=== PATIENT | female | born 1995 | race Caucasian/White ===

== ENCOUNTER → 2020-09-02 09:44 | Outpatient (CLI) | payer OTHER, SELFPAY ==
--- NOTE | 2020-09-02 | DI.US.S_ITS ---
PROCEDURE: US PELVIC COMPLETE INDICATIONS: SECONDARY OLIGOMENORRHEA; POSSIBLE PCOS TECHNIQUE: Real-time scanning was performed of the pelvic organs, with image documentation. Additional endovaginal scanning was necessary due to incomplete visualization of the adnexal and endometrial structures by transabdominal scanning. COMPARISON: None. FINDINGS: Uterus: Uterus is normal in size at 5.9 x 3.8 x 4.5 cm. The endometrium measures 5 mm in combined thickness. Ovaries: The right ovary measures 4.3 x 2.4 x 2.9 cm. The left ovary measures 3.5 x 1.6 x 4.2 cm. The ovaries have a normal sonographic appearance. Numerous (more than 12) follicles can be seen involving each ovary. No adnexal masses are seen. Other: No pathologic free abdominal or pelvic fluid. IMPRESSION: More than 12 follicles can be seen involving each ovary, which is consistent with polycystic ovarian syndrome. Dictated by: Chaka Contreras M.D. on 09/02/2020 at 10:42 Approved by: Chaka Contreras M.D. on 09/02/2020 at 10:43
== END ==
PROVIDERS: Referring Provider Nurse Practitioner Obstetrics & Gynecology; Visit Provider Nurse Practitioner Obstetrics & Gynecology
DX: N91.4 Secondary oligomenorrhea (principal)
CPT/HCPCS: 76830; 76856

== ENCOUNTER → 2021-01-19 07:44 | Outpatient (CLI) | payer OTHER, SELFPAY ==
--- NOTE | 2021-01-19 | DI.US.S_ITS ---
PROCEDURE: US OB >= 14 WEEKS FETUS INDICATIONS: 20 WEEK ANATOMICAL SURVEY OUTSIDE/PRIOR DATING DATA: Last menstrual period (LMP): Unknown. LMP-based estimated date of delivery (IVIS): Unknown . First dating scan (date and location): 01/19/2021 . Estimated date of delivery (IVIS) from first dating scan: 06/10/2021 . TECHNIQUE: Real-time scanning was performed of the fetus, with image documentation and biometric measurements. Endovaginal scanning: Not performed COMPARISON: None. FINDINGS: General: A single living intrauterine gestation is present. Presentation: Vertex. Placenta: Placental position is posterior, without previa. Amniotic fluid index: 15.9 cm, normal range is 5-24 cm. heart rate: 144 beats per minute. Maternal cervical canal: 5.2 cm long. Normal lower limit is 2.5 cm. biometrics: Biparietal diameter: 4.7 cm, 20 weeks 2 days Head circumference: 17.0 cm, 19 weeks 4 days Abdominal circumference: 14.6 cm, 19 weeks 6 days Femur length: 2.9 cm, 19 weeks 0 days Estimated gestational age from initial scan: not applicable. Composite gestational age from present scan: 19 weeks 5 days Estimated weight and percentile: Unknown Measurement variability for biometric dating: +/- 7 days from 14 weeks to 15 weeks 6 days gestation, +/- 10 days from 16 weeks to 21 weeks 6 days gestation, +/- 2 weeks from 22 weeks to 27 weeks 6 days gestation, +/- 3 weeks for 28 weeks gestation or later. weight reference: 4500 g or EFW >90/95% is considered macrosomia or large for gestational age. EFW <10% is small for gestational age. EFW 5% or less is considered intra-uterine growth restriction. Anatomic survey: Neuro: Ventricles are non-dilated at less than 10 mm. Cisterna magna is normal at 3-11 mm. Cerebellum is normal in size and morphology. Nuchal skin fold: Normal at less than 6 mm between 14-21 weeks gestational age. Face: Nose and lips, facial profile are normal. Spine: No evidence for spina bifida. Heart: 4-chambered heart is present, with normal ventricular outflow tracts. Left ventricular echogenic intracardiac focus. Diaphragm: Diaphragm is intact. Stomach: Left-sided stomach is present. Kidneys: No hydronephrosis. Normal is less than 5 mm in 2nd trimester, less than 7 mm in 3rd trimester. Cord: 3-vessel cord has orthotopic insertion. Bladder: Normal in size. Extremities: All 4 extremities identified. IMPRESSION: 1. Single living 2nd trimester intrauterine 2. Left ventricular EIF. Otherwise unremarkable anatomy study. 3. No previous estimated gestational age. Dictated by: Librado Stallings M.D. on 01/19/2021 at 17:25 Approved by: Librado Stallnigs M.D. on 01/19/2021 at 17:29
== END ==
PROVIDERS: Referring Provider Nurse Practitioner Obstetrics & Gynecology; Visit Provider Nurse Practitioner Obstetrics & Gynecology
DX: Z34.92 Encounter for supervision of normal pregnancy, unspecified, second trimester (principal); Z3A.20 20 weeks gestation of pregnancy
CPT/HCPCS: 76811

== ENCOUNTER → 2021-05-11 14:33 | Outpatient (ROUT) | payer OTHER, SELFPAY | PROVIDERS: Visit Provider Nurse Practitioner Obstetrics & Gynecology | DX: Z34.90 Encounter for supervision of normal pregnancy, unspecified, unspecified trimester (principal); Z3A.36 36 weeks gestation of pregnancy; Z36.85 Encounter for antenatal screening for Streptococcus B | CPT/HCPCS: 87081 ==

== ENCOUNTER 2021-06-10 15:49 | Outpatient (CLI) | payer OTHER, SELFPAY ==
--- NOTE | 2021-06-10 16:41 | P.TNLD_ITS ---
Visit Information Visit Information Date of evaluation: 06/10/21 Primary OB Provider: Leticia Machado On-call OB Provider: Leticia Machado Reason for Evaluation: Yes rupture of membranes Comments/Additional reasons for admission: 26YO @ [id number] here for evaluation of PROM. Noticed wet underwear ar ound 2 am and again later today. +FM and lots of mild cramping. No VB. Uncomplicated PN care w/ CNM. No VANCE, vision changes or RUQ pain. Vital Signs Vital Signs: BP 134/87, HR 88bpm, T 36.5C Temporal Serial BPs: 138/95, 143/99, 134/91, 138/80, 130/79, 142/84, 141/87, 134/88, 137/95 [facility] Medical History (Updated 06/10/21 @ 18:37 by Leticia Machado CNM) Asthma Social History (Updated 06/10/21 @ 16:48 by Leticia Machado CNM) marital status: number of children: 0 household members: spouse lives independently: Yes caregiver/support person: No Smoking Status: Never smoker Review of Systems Review of Systems ROS: Yes All systems reviewed with the patient and are negative except as otherwise documented Exam Vital Signs (past 8 hours): see above Presentation: vertex Objective Labs Result Diagrams: 06/10/21 16:55 06/10/21 16:55 Labs: Urine Pr:CR-0.49 Evaluation Evaluation Baseline heart rate: 135 Variability: Moderate (11-25) monitor accelerations: Present Monitor Decelerations: Absent Contraction Frequency (minutes): 5 Uterine Contraction Intensity: Mild Category of Tracing: Reactive Cervical dilation (cm): 1.5 Cervical effacement (%): 60 station: -3 Non-invasive Membranes Rupture Test: negative Diagnosis, Plan/Disposition Final Diagnosis (1) Preeclampsia: Status: Acute Plan/Disposition Plan: Counseled on preeclampsia and recommendation for IOL at this time. Pt consents. Perez balloon placed for cervical ripening. Given staffing shortage (RN), CNM consulted to discuss d/c to home overnight and admit in AM for pitocin. Given stability of preeclampsia labs from 05/30/21 to today, agreed with plan. cervical ripening at home overnight and pt to return @ 0700 for IOL. OB Disposition: home
[2021-06-10 17:17] LABS: Add Manual Diff / Slide Review NO; Basophils Absolute Auto 0 /uL (0-100); Basophils Percent Auto 0.6 % (0-2); Eosinophils Absolute Auto 100 /uL (0-450); Eosinophils Percent Auto 1.1 % (2-4); Hematocrit 40.2 % (36-46); Hemoglobin 13.9 g/dL (12.0-16.0); Lymphocytes Absolute Auto 2400 /uL (1100-4500); Lymphocytes Percent Auto 27.5 % (25-40); Mean Corpuscular HGB Conc 34.6 % (30-36); Mean Corpuscular Hemoglobin 31.3 PG (26-34); Mean Corpuscular Volume 90.4 fL (80-100); Monocytes Absolute Auto 600 /uL (0-900); Monocytes Percent Auto 6.8 % (3-14); Neutrophils Absolute Auto 5500 /uL (1500-7000); Red Blood Cell Count 4.45 X10^6/uL (4.0-5.2); Red Cell Distribution Width 13.4 % (11.6-14.8); White Blood Cell Count 8.6 X10^3/uL (4.5-11.0)
[2021-06-10 17:29] LABS: Creatinine Urine Random 48.4 mg/dL; Protein (Total) Urine Random 24 mg/dL (0-12); Protein Creatinine Ratio Urine 0.49 GRAM/24H
[2021-06-10 17:30] LABS: Platelet Count 132 X10^3/uL (150-400)
[2021-06-10 17:34] LABS: Aspartate Aminotransferase 33 IU/L (14-36); BUN Creatinine Ratio 17.2 (6-22); Blood Urea Nitrogen 10 mg/dL (7-17); Estimated Glomerular Filt Rate > 60.0 mL/min (>60)
== END 2021-06-10 18:00 | disposition home or self-care (01) ==
LOC: LABOR 17:21 → OB 06-13 07:24
PROVIDERS: Referring Provider Nurse Practitioner Obstetrics & Gynecology; Visit Provider Nurse Practitioner Obstetrics & Gynecology
DX: O14.93 Unspecified pre-eclampsia, third trimester (principal); O48.0 Post-term pregnancy; Z3A.40 40 weeks gestation of pregnancy
CPT/HCPCS: 36415; 59025; 82570; 84156; 84450; 84550; 85025; G0378; G0379

== ENCOUNTER 2021-06-11 06:50 | Inpatient (IN) | payer OTHER, SELFPAY ==
--- NOTE | 2021-06-11 07:34 | PM.OBHP.1 ---
OB HPI Date/Time Date of admission: 06/11/21 Date Patient Seen: 06/11/21 Time Patient Seen: 07:15 History of Present Condition Chief complaint: MATERNITY : 1 Para: 0 Estimated Date of Delivery: 06/08/21 Estimated Gestational Age (weeks): 40.3 Narrative: Tiera Clement is a 26 year old female @ 40wks 3days by 10wk US. Seen in triage yesterday for evaluation of leaking fluid. ROM evaluation was negative, but she was subsequently diagnosed with preeclampsia and consented for IOL. Perez balloon was placed and she was discharged to home overnight d/t staffing shortage. Strong contractions occurred for a few hours and then stopped, but the balloon has not yet come out. +FM. No VB or LOF. No VANCE, vision changes, RUQ pain or increased edema. Previously uncomplicated PN care w/ CNM. Desires low intervention . , Gavin, is present and supportive. Indications Indication for induction OB: gestational HTN/pre-eclampsia History of Present care: good care, initiated at week # (10), number of visits (11) and pounds weight gain (42) Dating criteria: based on 1st trimester US only Ultrasounds: normal mid trimester US Obstetrical complications: preeclampsia Medical complications: none Preadmission Labs Blood type: A (+) positive -: Antibody screen: negative, GBS status: negative, HBsAG: negative, HIV: negative and RPR/VDLR: negative -: Chlamydia screen: not detected and Gonorrhea screen: not detected -: Rubella: not immune and Varicella: immune HCT: 40.2 HCAB: negative PAP: Normal 1 hr GTT: 109 Evaluation Evaluation Baseline heart rate: 120 Variability: Moderate (11-25) monitor accelerations: Present Monitor Decelerations: Absent Contraction Frequency (minutes): 8 Uterine Contraction Intensity: Mild Category of Tracing: Reactive Status: Category l Dilation (cm): 5.5 Effacement (%): 80 Dilation: >/=5 cm Effacement: >/=80% station: -3 Position of cervix: mid Consistency: soft Gilmore score: 9 PFSH Medical History Asthma Social History (Reviewed 06/11/21 @ 08:00 by JONI Araujo marital status: number of children: 0 household members: spouse lives independently: Yes caregiver/support person: No Smoking Status: Never smoker Meds Home Medications and Allergies Allergies Allergy/AdvReac Type Severity Reaction Status Date / Time Penicillins Allergy Unknown Verified 06/11/21 08:02 Review of Systems Review of Systems ROS: Yes unobtainable due to mental status OB Exam Resp Effort & Inspection: normal respiratory effort Auscultation: clear to auscultation bilaterally Cardio Rate: regular rate Rhythm: regular rhythm Heart Sounds: S1 normal and S2 normal Presentation: vertex Assessment and Plan Assessment and Plan Assessment and Plan narrative: A: Term Nullipara Preeclampsia Rubella NONimmune Thrombocytopenia No indication for GBS prophylaxis Cat I FHR P: Admit, routine orders. Pitocin, per protocol, as soon as staffing allows. VS Q2 hours and NST Q4 hours while waiting. Reassess in 4 hours or sooner, PRN. /OB back-up aware of patient status and plan of care. Time Spent with Patient Total time spent with greater than 50% in coordination of care (as documented) at patient's floor/unit and/or counseling patient:: 15-24 minutes
[2021-06-11 09:03] LABS: COVID19 -Nasal RAPID POSITIVE (Negative)
--- NOTE | 2021-06-11 13:01 | PM.OBPNLAB ---
Date/Time Date Patient Seen: 06/11/21 Time Patient Seen: 13:02 Pain Control Pain control: tolerating well Comments: Sitting up, bouncing on the ball. Continues to feel mild contractions every 5 minutes or so. VS: BP 140/89mmHg, HR 77bpm, T 36.0C Temporal Pelvic Exam Dilation (cm): 5 Effacement (%): 80 station: -3 Comments: CE Deferred Contractions Contractions on admission: irregular Monitor mode: External Contraction frequency (min): 5 Contraction duration (min): 1 Contraction pattern: Regular Contraction intensity: Mild Status status: Category l Heart Rate Baseline: 120 Monitor Accelerations: Present Monitor Decelerations: Absent Monitor Variability: Moderate Assessment and Plan Assessment: induction ongoing Comments: Staff now allows for initiation of pitocin. RN to begin pitocin, per protocol soon. Anticipatory guidance given. Reassess in 4 hours or sooner, PRN. CE after 2 hours of strong contractions.
[2021-06-11 14:45] LABS: Add Manual Diff / Slide Review NO; Basophils Absolute Auto 100 /uL (0-100); Basophils Percent Auto 0.5 % (0-2); Eosinophils Absolute Auto 100 /uL (0-450); Eosinophils Percent Auto 1.1 % (2-4); Hematocrit 38.7 % (36-46); Hemoglobin 13.2 g/dL (12.0-16.0); Lymphocytes Absolute Auto 2600 /uL (1100-4500); Lymphocytes Percent Auto 21.1 % (25-40); Mean Corpuscular HGB Conc 34.1 % (30-36); Mean Corpuscular Volume 91.2 fL (80-100); Monocytes Absolute Auto 900 /uL (0-900); Monocytes Percent Auto 6.9 % (3-14); Neutrophils Absolute Auto 8700 /uL (1500-7000); Neutrophils Percent Auto 70.4 % (50-75); Platelet Count 139 X10^3/uL (150-400); Red Blood Cell Count 4.24 X10^6/uL (4.0-5.2); Red Cell Distribution Width 13.3 % (11.6-14.8); White Blood Cell Count 12.4 X10^3/uL (4.5-11.0)
[2021-06-11] MEDS: OXYTOCIN PREMIX 30 UNIT/500 ML PLAST..BAG IV (14:45)
[2021-06-11] MEDS: LACTATED RINGERS 1,000 ML 100 ML IV ×2 (14:53→19:23)
[2021-06-11 15:56] VITALS: BP 140/89
--- NOTE | 2021-06-11 16:47 | PM.OBPNLAB ---
Date/Time Date Patient Seen: 06/11/21 Time Patient Seen: 16:47 Pain Control Pain control: tolerating well Comments: Standing and rocking, occasionally breathing through contractions. Coping well. Contractions are not as strong as they were last night with the ballard balloon. VS: BP 134/82mmHg, HR 81bpm, T 36.4C Temporal Pelvic Exam Dilation (cm): 5 Effacement (%): 80 station: -3 Amniotic membrane status: Intact Comments: CE deferred Contractions Monitor mode: External Pitocin rate (mU/min): 7 Contraction frequency (min): 5 Contraction duration (min): 2 Contraction pattern: Regular Contraction intensity: Moderate Status status: Category l Heart Rate Baseline: 135 Monitor Accelerations: Present Monitor Decelerations: Absent Monitor Variability: Moderate Assessment and Plan Assessment: induction ongoing Plan: continuous present management Comments: Continue pitocin titration to adequate contractions. Reassess in 4 hours or sooner, PRN. Plan CE after 2 hours of strong contractions.
[2021-06-11] MEDS: FENT 2MCG/ML BUPIV 0.125% EPI 200 MCG/100 ML PLAST..BAG 12 MCG EPIDURAL (19:40)
--- NOTE | 2021-06-11 20:07 | PM.AN.REGBLK ---
Regional Block Pre-procedure Procedure: Continuous Lumbar Epidural for L&D Attending OB provider: Leticia Machado PMH/ROS narrative: G1 induction for pre-E, (+) COVID (3 weeks asymptomatic) Hx: No personal or family history of anesthesia problems. PSH/Anesthesia history narrative: none Exam narrative: RRR, CTAB, masked ASA Class: III Labs: Hct 38.7 % (36-46) 06/11/21 14:30 Plt Count 139 X10^3/uL (150-400) L 06/11/21 14:30 Medications: Current Medications Generic Name Dose Route Start Last Admin Trade Name Freq PRN Reason Stop Dose Admin Calcium Carbonate 1,000 mg 06/11/21 07:28 Calcium Carbonate 500 Mg Tab PO Q2HR PRN Dyspepsia Carboprost Tromethamine 250 mcg 06/11/21 07:28 Carboprost 250 Mcg/Ml Ampul IM Q90M PRN Bleeding Fentanyl 100 mcg 06/11/21 07:28 Fentanyl 100 Mcg/2 Ml Inj IV Q1H PRN Pain, Severe (7-10) Lactated Ringer's 1,000 mls @ 100 mls/hr 06/11/21 07:30 06/11/21 19:23 Lactated Ringers IV 100 mls/hr CONT NOAM Administration Oxytocin/Lactated Ringer's 30 unit in 500 mls @ 200 mls/hr 06/11/21 07:28 Oxytocin Premix IV CONT PRN Bleeding Protocol Oxytocin/Lactated Ringer's 30 unit in 500 mls @ 1 mls/hr 06/11/21 07:30 06/11/21 14:45 Oxytocin Premix IV 1 milliunit/min TITRATE NOAM 1 mls/hr Administration Protocol 1 MILLIUNIT/MIN Tranexamic Acid 1,000 mg/ 100 mls @ 200 mls/hr 06/11/21 07:28 Sodium Chloride IV NOW PRN Bleeding Methylergonovine Maleate 0.2 mg 06/11/21 07:28 Methylergonovine 0.2 Mg Tablet PO Q6HR PRN Heavy Bleeding Methylergonovine Maleate 0.2 mg 06/11/21 07:28 Methylergonovine 0.2 Mg/Ml Vial IM NOW PRN Bleeding Misoprostol 1,000 mcg 06/11/21 07:28 Misoprostol 200 Mcg Tablet SC NOW PRN Bleeding Misoprostol 800 mcg 06/11/21 07:28 Misoprostol 200 Mcg Tablet SC NOW PRN Bleeding Misoprostol 400 mcg 06/11/21 07:28 Misoprostol 200 Mcg Tablet SL NOW PRN Bleeding Naloxone HCl 0.2 mg 06/11/21 07:28 Naloxone 0.4 Mg/Ml Vial IV Q2MIN PRN Opiate Reversal Ondansetron HCl 4 mg 06/11/21 07:28 Ondansetron 4 Mg/2 Ml Inj IV Q4HR PRN Nausea And Vomiting Oxytocin 10 unit 06/11/21 07:28 Oxytocin 10 Unit/Ml Vial IM NOW PRN Bleeding Allergies: Allergies Allergy/AdvReac Type Severity Reaction Status Date / Time Penicillins Allergy Unknown Verified 06/11/21 08:02 Procedure Insertion date: 06/11/21 Insertion time: 19:53 Prep/Local: betadine x3 (chloroprep) and 1% lidocaine Interspace: L2-3 Patient position: sitting Needle: 18 gauge Hustead (with 27G pencil point needle-through needle for IT dose) Loss of resistance with: saline (with air bubble) POORNIMA at (cm): 4 Catheter placed at SKIN (cm): 9 Catheter in SPACE (cm): 5 Insertion: Yes CSF, No Blood, No Paresthesia with insertion, No Paresthesia with injection and No Test dose reaction Initial Medications TEST DOSE time: 19:53 TEST DOSE: 1.5% lidocaine with epinephrine 1:200k (mL): 5 (3mL initial test dose, 2mL as part of first bolus) BOLUS DOSE time: 19:54 BOLUS DOSE (mL): 2 BOLUS DOSE med: other (10mcg fentanyl intrathecally, 90mcg fentanyl via epidural catheter) Infusion INFUSION: 0.0625% bupivacaine and with fentanyl 2 mcg/mL Initial rate (mL/hr): 12 (with bolus of 5mL Q15min lockout) Subsequent interventions: 2233: patient with increasing breathing through contractions despite button pushes. Bilateral (with slightly more sensation on non-dependent side). Bolus given bupi 0.25% 5mL. 0030: Patient comfortable. RN reports that it did take some time for the bolus to get her there though. 0330: Called with increasing pain. (+) boluses used. Pump reports (1) at 2200 and (2) at 0300. Patient breathing hard and moaning with contractions. Epidural catheter intact at 9cm. Bolus given bupi 0.25% 10mL. 0400: Patient comfortable. Post-procedure Anesthesia time START: 19:37 Anesthesia time END: 10:54 Post-procedure Anesthesia Assessment: No Anesthesia complications
--- NOTE | 2021-06-11 20:23 | PM.OBPNLAB ---
Date/Time Date Patient Seen: 06/11/21 Time Patient Seen: 20:24 Pain Control Pain control: epidural Comments: SROM occurred around 1720, followed shortly after by strong contraction and a spontaneous urge to push. CE was unchanged and after a discussion of options and risks, patient requested an epidural. Pitocin was titrated down during that time to help her cope. Now resting comfortably. VS 125/77mmHg, HR 69bpm, T 36.4C Temporal Pelvic Exam Dilation (cm): 5 Effacement (%): 80 station: -3 Amniotic membrane status: Leaking Contractions Monitor mode: External Pitocin rate (mU/min): 5 Contraction frequency (min): 3 Contraction duration (min): 1 Contraction pattern: Regular Contraction intensity: Moderate Status status: Category l Heart Rate Baseline: 125 Monitor Accelerations: Present Monitor Decelerations: Early Monitor Variability: Moderate Assessment and Plan Assessment: induction ongoing Plan: continuous present management Comments: Reassess in 4 hours or sooner, PRN.
--- NOTE | 2021-06-12 00:30 | PM.OBPNLAB ---
Date/Time Date Patient Seen: 06/12/21 Time Patient Seen: 00:30 Pain Control Pain control: epidural Comments: Resting comfortably. Peanut ball in place. VS: BP 133/82mmHg, HR 86bpm, T 36.3C Temporal Pelvic Exam Dilation (cm): 7 Effacement (%): 90 station: -2 Amniotic membrane status: Leaking Comments: Bloody show noted Contractions Monitor mode: External Pitocin rate (mU/min): 6 Contraction frequency (min): 3 Contraction duration (min): 1 Contraction pattern: Regular Contraction intensity: Moderate Status status: Category l Heart Rate Baseline: 145 Monitor Accelerations: Present Monitor Decelerations: Early and Variable Monitor Variability: Moderate Assessment and Plan Assessment: active labor and induction ongoing Plan: continuous present management Comments: Reassess in 4 hours or sooner, PRN.
[2021-06-12] MEDS: FENT 2MCG/ML BUPIV 0.125% EPI 200 MCG/100 ML PLAST..BAG 12 MCG EPIDURAL ×2 (03:02→08:04)
[2021-06-12] MEDS: LACTATED RINGERS 1,000 ML 100 ML IV (03:04)
--- NOTE | 2021-06-12 04:00 | PM.OBPNLAB ---
Date/Time Date Patient Seen: 06/12/21 Time Patient Seen: 03:30 Pain Control Pain control: epidural Comments: Patient breathing through contractions again, complaining of pressure. called for KIANA bolus. VS: BP 135/87, HR 108bpm, T 37.0C Temporal Pelvic Exam Dilation (cm): 9.5 Effacement (%): 100 station: -1 Amniotic membrane status: Leaking Comments: bloody show CE by RN Contractions Monitor mode: External Pitocin rate (mU/min): 4 Contraction frequency (min): 3 Contraction duration (min): 1 Contraction pattern: Regular Contraction intensity: Moderate Status status: Category l Heart Rate Baseline: 145 Monitor Accelerations: Present Monitor Decelerations: Absent Monitor Variability: Moderate Assessment and Plan Assessment: active labor Plan: continuous present management Comments: Recommend working with anesthesia for adequate pain relief and recheck in 2-3 hours or sooner, PRN.
--- NOTE | 2021-06-12 07:53 | PM.OBPNLAB ---
Date/Time Date Patient Seen: 06/12/21 Time Patient Seen: 06:30 Pain Control Pain control: epidural Pelvic Exam Dilation (cm): 9.5 Effacement (%): 100 station: -1 Amniotic membrane status: Leaking Comments: No change. IUPC placed. Contractions Monitor mode: External Pitocin rate (mU/min): 6 Contraction frequency (min): 3 Contraction duration (min): 1 Contraction pattern: Regular Contraction intensity: Moderate Intrauterine tone measurement: 140 Status status: Category l Heart Rate Baseline: 145 Monitor Accelerations: Present Monitor Decelerations: Early Monitor Variability: Moderate Assessment and Plan Assessment: active labor and induction ongoing Comments: Counseled on recommendation for IUPC to assess adequacy of contractions. Pt agreed and IUPC was placed. Initial MVUs (measured from [id number]) are inadequate. Continue pitocin titration to adequate contractions pattern. Will consult OB, if indicated by no change/descent after 2 hours of adequate contractions.
--- NOTE | 2021-06-12 11:47 | P.PCNOB_ITS ---
Events: Labor Induction (preeclampsia) Labor & Delivery Delivery date: 06/12/21 Intrapartal Events: Mild Preeclampsia Cervical ripening method: per Perez bulb protocol Induction method: per pitocin protocol Delivery augmentation: pitocin Delivery monitor: external FHT and internal uterine Route of delivery: Episiotomy description: None L&D Laceration Description: Vaginal - 1st Degree Delivery repair: chromic (3.0) Estimated blood loss (mL): 300 Anesthesia Type: Epidural Narrative: Labor progressed slowly with an IUPC to assist with pitocin titration. C/C?+1 @ 1010. Tiera push effectively with coaching and encouragement. NSVB of a vigorous baby boy in JEWELL position with a compound right hand. There was no nuchal cord and the shoulders delivered easily after assisting the anterior/right arm out. [place] was placed on maternal abdomen for drying and skin to skin. Remaining 30 units of pitocin in 500mL LR was increased to 200mL/hr for AMTSL. After cessation of pulsation, the cord was double clamped by CNM and cut by FOB. Cord blood hold sample was collected. Gentle cord tractio nand a single maternal push led to spontaneous, Schultze delivery of an apparently intact placenta, membranes and 3VC. Fundus firm and bleeding light. 1st degree left labial split extending into 1st degree left sulcus was repaired with 3.0 chromic in the usual fashion. Both mother and baby stable and skin to skin as I left the room. QBL 300mL. Baby 1: gender: Male Presentation: vertex Position: Left Occiput Anterior Placenta delivery description: Spontaneous Cord Vessel Description: 3 Vessels score (1 min): 9 score (5 min): 9 weight: 3.404 kg Narrative: Plan for aftercare: Routine care
[2021-06-12] MEDS: KETOROLAC 30 MG/ML VIAL IV (12:01)
[2021-06-12] MEDS: DERMOPLAST SPRAY 20% 60 ML 1 SPRAY TOP (12:02)
[2021-06-12] MEDS: IBUPROFEN 600 MG TABLET PO (18:20)
[2021-06-12] MEDS: ACETAMINOPHEN 325 MG TABLET 650 MG PO (20:47)
[2021-06-12] MEDS: METHYLERGONOVINE 0.2 MG TABLET PO (20:47)
[2021-06-13] MEDS: METHYLERGONOVINE 0.2 MG TABLET PO (03:40)
[2021-06-13] MEDS: IBUPROFEN 600 MG TABLET PO ×2 (03:40→12:02)
--- NOTE | 2021-06-13 07:56 | P.PNOB_ITS ---
Subjective - OB Subjective Patient comments: pain well controlled and tolerating diet [place] baby status: doing well [place] feeding status: exclusively breast feeding Narrative: PPD1: s/p NSVB w/ 1st degree vaginal laceration after IOL for preeclampsia Date Patient Seen: 06/13/21 Time Patient Seen: 07:30 Interval history: Called by RN overnight for patient unable to void. Was straight cathed for 600mL. Heavy bleeding with large clots expressed at that time (QBL 300mL for total QBL of 600mL since the ). PO methergine given. In the next few hours, bleeding remained moderate and patient voided 300mL with a bladder scan residual void of 425mL so a Perez catheter was placed at midnight. Bleeding has been small to moderate since Perez was placed. Patient is ambulating and without difficulty. Tolerating a general diet. Pain is well controlled w/ PO medication. remains present and supportive. Exam Vital Signs (past 8 hours): BP 125/77, HR 83bpm, RR 16/min, T 97.9F Temporal External Female Exam: externally tender and external swelling Other: Fundus firm at U, lochia light, moderate periurethral edema, Perez draining clear yellow urine. Objective Labs Result Diagrams: 06/11/21 14:30 Assessment & Plan Assessment and Plan (1) Urinary retention with incomplete bladder emptying: Status: Acute (2) First degree perineal laceration during delivery: Status: Acute Plan day: 1 plan OB: routine care and other (recommend Perez stay in for 18-24 hours, given periurethra edema and anticipate d/c to home tomorrow. ) Time Spent With Patient Time: Total time spent is greater than 50% in coordination of care (as documented) at patient's floor/unit and/or counseling patient: Time with patient: 15-24 minutes
[2021-06-13] MEDS: ACETAMINOPHEN 325 MG TABLET 650 MG PO (08:55)
[2021-06-13] MEDS: LANOLIN OINT 7 GM 1 APPLIC TOP (08:55)
--- NOTE | 2021-06-14 08:11 | PM.OBDS.1 ---
Discharge Providers Provider Date of admission: 06/11/21 06:50 Discharge Date: 06/14/21 Consults: 06/13/21 11:34 Consult to Bowling Ball Finisher Routine Comment: Discharge provider: Leticia Machado CNM Summary Hospital Course Date Patient Seen: 06/14/21 Time Patient Seen: 08:12 Hospital Course: Perez was removed at midnight. Tiera is now voiding, ambulating and independetly. Tolerating a general diet. BPS are stable, elevated in the evening only. Pain is well controlled w/ PO medication. More confident with and eager for discharge to home today. , Gavin remains present and supportive. Peripartum Data Delivery Method: Natural Vaginal Laceration Description: Vaginal - 1st Degree Episiotomy description: None 1: Gender: Male Disposition of : home Discharge Diagnosis (1) Urinary retention with incomplete bladder emptying: Status: Acute (2) First degree perineal laceration during delivery: Status: Acute Status at Discharge Cognitive/behavioral status at discharge: oriented and calm Functional status at discharge: independent ambulation Overall status at discharge: patient is progressing back to baseline Time Spent with Patient Time attestation: Total time spent providing and/or coordinating discharge services: Time spent: Less than 30 minutes Objective Labs Result Diagrams: 06/11/21 14:30 Exam Vital Signs (past 8 hours): BP 126/80, HR 80bpm, T 36.3C Temporal Other: Fundus firm @ u-1, lochia scant, minimal edema to perineum. Discharge Plan Discharge Plan Patient Disposition: Home Discharge orders & Medications Prescriptions: New acetaminophen 325 mg Tablet 650 mg PO Q6HR PRN (Reason: Pain, Mild (1-3)) 14 Days Qty: 60 0RF ibuprofen 600 mg Tablet 600 mg PO Q6HR PRN (Reason: Pain, Mild (1-3)) 14 Days Qty: 60 0RF Continued 1 tablet DIRECTED 0RF Follow up/Referrals: Leticia Machado CNM [[employer] Machine Operator] - (Follow-up 06/27/21 @ 1100 by Telehealth Follow-up 07/25/21 @ 1030 in office) Diet/Activity/Treatments Diet: Regular Activity: pelvic rest x 6 weeks Skin/Wound/Dressing Care Report to your healthcare provider any signs of infection, such as:: chills, fever, increased pain, unusual drainage and unusual redness Visit Report/Discharge Packet Instructions: Depression
[2021-06-14] MEDS: IBUPROFEN 600 MG TABLET PO (09:50)
[2021-06-14] MEDS: ACETAMINOPHEN 325 MG TABLET 650 MG PO (09:51)
[2021-06-14 11:41] VITALS: BP 130/74; PULSE 86; RESP 17; TEMP 36.2
== END 2021-06-14 22:47 | disposition home or self-care (01) | DRG 805 ==
PROVIDERS: Admitting Provider Nurse Practitioner Obstetrics & Gynecology; Referring Provider Nurse Practitioner Obstetrics & Gynecology; Visit Provider Nurse Practitioner Obstetrics & Gynecology
DX: O14.04 Mild to moderate pre-eclampsia, complicating childbirth (principal); U07.1 COVID-19; Z37.0 Single live birth; O98.52 Other viral diseases complicating childbirth; Z3A.40 40 weeks gestation of pregnancy; O70.0 First degree perineal laceration during delivery; O99.891 Other specified diseases and conditions complicating pregnancy; R33.9 Retention of urine, unspecified
CPT/HCPCS: 01967; 36415; 59050; 85025; 86850; 86900; 86901; 87635; C9803; G0379; J1885; J2590; J3010

== ENCOUNTER → 2022-03-28 14:15 | Outpatient (CLI) | payer OTHER, SELFPAY ==
--- NOTE | 2022-03-28 14:17 | DI.US.S_ITS ---
PROCEDURE: US OB >= 14 WEEKS FETUS INDICATIONS: ANATOMY SCAN OUTSIDE/PRIOR DATING DATA: First dating scan (date and location): 03/28/2022. Estimated date of delivery (IVIS) from first dating scan: 08/15/2022. TECHNIQUE: Real-time scanning was performed of the fetus, with image documentation and biometric measurements. COMPARISON: None. FINDINGS: General: A single living intrauterine gestation is present. Presentation: Variable. Placenta: Placental position is posterior , without previa. Amniotic fluid index: 18.4 cm, normal range is 5-24 cm. Single deepest vertical pocket is 5.7 cm. heart rate: 152 beats per minute. Maternal cervical canal: 3.3 cm long. Normal lower limit is 2.5 cm. biometrics: Biparietal diameter: 20 weeks 2 days Head circumference: 20 weeks 2 Abdominal circumference: 19 weeks 5 days Femur length: 19 weeks 6 days Composite gestational age from present scan: 20 weeks Anatomic survey: Neuro: Ventricles are non-dilated at less than 10 mm. Cisterna magna is normal at 3-11 mm. Cerebellum is normal in size and morphology. Nuchal skin fold: Normal at less than 6 mm between 14-21 weeks gestational age. Face: Nose and lips, facial profile are normal. Spine: No evidence for spina bifida. Heart: 4-chambered heart is present, with normal ventricular outflow tracts. Solitary left ventricular intracardiac focus. Diaphragm: Diaphragm is intact. Stomach: Left-sided stomach is present. Kidneys: No hydronephrosis. Normal is less than 5 mm in 2nd trimester, less than 7 mm in 3rd trimester. Cord: 3-vessel cord has orthotopic insertion. Bladder: Normal in size. Extremities: All 4 extremities identified. IMPRESSION: 1 20 week 0 day single living IUP corresponding to ultrasound IVIS of 08/15/2022. 2. Echogenic intracardiac focus: 1.4-1.8 fold likelihood of Down syndrome. If isolated finding, consider aneuploidy screening with cell-free DNA. If aneuploidy screen is negative, no further evaluation needed. Anatomic survey otherwise is normal. We strive to produce accurate, complete, and clear reports of imaging services. To assist us in improving patient care, this report was composed using standard report templates and voice recognition software. Therefore, it may contain abnormal punctuation, insertions and/or omissions. Occasional wrong-word or sound-alike substitutions may occur. Though we review the report and make efforts to correct it, we do recommend that the report be read carefully in proper context to recognize any text inaccuracies. Dictated by: Cruz LEROY Interpreted: Digna Navas MD on 03/28/2022 at 15:28 Transcribed by: SALTY on 03/28/2022 at 15:30 Approved by: Digna Navas M.D. on 03/28/2022 at 16:16
== END ==
PROVIDERS: Referring Provider Nurse Practitioner Obstetrics & Gynecology; Visit Provider Nurse Practitioner Obstetrics & Gynecology
DX: Z34.92 Encounter for supervision of normal pregnancy, unspecified, second trimester (principal); Z3A.20 20 weeks gestation of pregnancy
CPT/HCPCS: 76811

== ENCOUNTER 2022-08-17 21:35 | Outpatient (CLI) | payer OTHER, SELFPAY ==
--- NOTE | 2022-08-17 21:49 | PM.OBTRLD ---
Visit Information Visit Information Date of evaluation: 08/17/22 Primary OB Provider: Renee Wilson On-call OB Provider: Renee Wilson Reason for Evaluation: Yes non-stress test non-stress test reason: decreased movement Comments/Additional reasons for admission: Tiera is a 27 year old at 40w2d by early ultrasound. She called misty, concerned about decreased movement. Had been lying down and drinking water for 30 min with very little movement at a time when baby is usually active. Otherwise feeling fine. Denies headache, visual changes, epigastric pain. Denies contractions. Declines SVE or membrane sweep at this time. Vital Signs Vital Signs: BP: 140/91, 118/83 Temp: 97.7 F SpO2: 96% HR: 68 RR: 18 PFSH Medical History (Updated 08/17/22 @ 22:13 by Renee Wilson CNM, KRYSTYNA) Asthma PCOS (polycystic ovarian syndrome) Supervision of normal in third trimester Surgical History (Updated 08/17/22 @ 22:01 by Renee Wilson CNM, KRYSTYNA) History of repair of ACL Family History (Updated 08/17/22 @ 22:02 by Renee Wilson CNM, KRYSTYNA) Grandfather Diabetes mellitus Aunt Stroke FHx: mental illness Grandmother Thyroid disease Grandmother FHx: mental illness Social History marital status: number of children: 0 household members: spouse lives independently: Yes caregiver/support person: No Smoking Status: Never smoker Review of Systems Review of Systems Narrative: negative except as noted above. Evaluation Evaluation Baseline heart rate: 120 Variability: Moderate (11-25) monitor accelerations: Present Monitor Decelerations: Absent Uterine Contraction Intensity: Mild Category of Tracing: Reactive Diagnosis, Plan/Disposition Final Diagnosis (1) Decreased movement affecting management of in third trimester: Status: Acute Problem details: Reassured by reactive NST. (2) Supervision of normal in third trimester: Status: Acute Plan/Disposition Plan: Discharge home. Review s/sx of pre-eclampsia and when to call with symptoms. Review warning signs of labor. RTC Sunday for PNV.
== END 2022-08-17 22:35 | disposition home or self-care (01) ==
LOC: OB 09-18 13:02
PROVIDERS: Referring Provider Advanced Practice Midwife; Visit Provider Advanced Practice Midwife
DX: O36.8130 Decreased fetal movements, third trimester, not applicable or unspecified (principal); Z3A.40 40 weeks gestation of pregnancy
CPT/HCPCS: 59050; G0378; G0379

== ENCOUNTER 2022-08-22 16:26 | Inpatient (IN) | payer OTHER, SELFPAY ==
--- NOTE | 2022-08-22 16:55 | PM.OBHP.1 ---
OB HPI Date/Time Date of admission: 08/22/22 Date Patient Seen: 08/22/22 Time Patient Seen: 16:30 History of Present Condition Chief complaint: labor : 2 Para: 1 Estimated Date of Delivery: 08/15/22 Estimated Gestational Age (weeks): 41w0d Narrative: Tiera Clement is a 27 year old female at 41w0d by 9 week ultrasound. Here for management of spontaneous labor. Seen in clinic today, fernanda mildly with membranes swept. contractions strengthened after sweep and have been consistent, now breathing through strong contractions every 2-4 minutes. No leaking of fluid or bleeding. +FM. Here with supportive at bedside. Desires low intervention . Good care with CNM. Previous hx of pre-eclampsia, no complications with this . History of Present care: good care, initiated at week # (9), number of visits (11) and pounds weight gain (28) Dating criteria: based on 1st trimester US only Ultrasounds: normal 1st trimester US and normal mid trimester US Obstetrical complications: none Medical complications: none Preadmission Labs Blood type: A (+) positive -: Antibody screen: negative, GBS status: negative, HBsAG: negative, HIV: negative and RPR/VDLR: negative -: Chlamydia screen: not detected and Gonorrhea screen: not detected -: Rubella: immune and Varicella: immune HCT: 39.4 PAP: Normal 1 hr GTT: 74 Prior (ies) History: Term NSVB x1 IOL for preeclampsia Evaluation Evaluation Baseline heart rate: 115 Variability: Moderate (11-25) monitor accelerations: Present Monitor Decelerations: Absent Contraction Frequency (minutes): 4 Uterine Contraction Intensity: Moderate Category of Tracing: Reactive Dilation (cm): 4 Effacement (%): 80 Dilation: 3-4 cm Effacement: >/=80% station: -1 Position of cervix: mid Consistency: soft Gilmore score: 10 PFSH Medical History Asthma PCOS (polycystic ovarian syndrome) Preeclampsia Supervision of normal in third trimester Surgical History History of repair of ACL Family History Grandfather Diabetes mellitus Aunt Stroke FHx: mental illness Grandmother Thyroid disease Grandmother FHx: mental illness Social History marital status: number of children: 0 household members: spouse lives independently: Yes caregiver/support person: No Smoking Status: Never smoker Meds Home Medications and Allergies Home Medications Medication Instructions Recorded Confirmed Type DIRECTED 06/11/21 History Allergies Allergy/AdvReac Type Severity Reaction Status Date / Time Penicillins Allergy Unknown Verified 06/11/21 08:02 Review of Systems Review of Systems ROS: Yes All systems reviewed with the patient and are negative except as otherwise documented OB Exam Vital signs Blood Pressure: 136/92 Pulse Rate: 75 Respiratory Rate: 16 Resp Effort & Inspection: normal respiratory effort and able to speak in complete sentences Auscultation: clear to auscultation bilaterally Cardio Rate: regular rate Rhythm: regular rhythm Presentation: vertex Objective Labs 08/22/22 17:00 08/22/22 17:00 Assessment and Plan Assessment and Plan Assessment and Plan narrative: A: Term primipara Approaching active labor Elevated blood pressure without diagnosis of hypertension No antibiotics indicated No Rhogam indicated Cat I FHR P: Admit routine orders Expectant management with comfort measures May switch to intermittent auscultation Urine/Creatinine ordered, results pending Pre-eclampsia blood panel ordered Reassess in 4-6 hours or sooner, PRN
[2022-08-22 17:23] LABS: Basophils Absolute Auto 100 /uL (0-100); Basophils Percent Auto 0.5 % (0-2); Eosinophils Absolute Auto 100 /uL (0-450); Hematocrit 41.2 % (36-46); Hemoglobin 14.2 g/dL (12.0-16.0); Lymphocytes Absolute Auto 3100 /uL (1100-4500); Lymphocytes Percent Auto 26.1 % (25-40); Mean Corpuscular HGB Conc 34.5 % (30-36); Mean Corpuscular Hemoglobin 30.8 PG (26-34); Mean Corpuscular Volume 89.2 fL (80-100); Monocytes Absolute Auto 600 /uL (0-900); Monocytes Percent Auto 5.2 % (3-14); Neutrophils Absolute Auto 7900 /uL (1500-7000); Neutrophils Percent Auto 67.2 % (50-75); Platelet Count 154 X10^3/uL (150-400); Red Blood Cell Count 4.62 X10^6/uL (4.0-5.2); Red Cell Distribution Width 13.5 % (11.6-14.8); White Blood Cell Count 11.8 X10^3/uL (4.5-11.0)
[2022-08-22 17:24] LABS: Add Manual Diff / Slide Review SLIDE REVIEW
[2022-08-22 17:32] LABS: Aspartate Aminotransferase 27 IU/L (14-36); BUN Creatinine Ratio 13.5 (6-22); Blood Urea Nitrogen 7 mg/dL (7-17); Estimated Glomerular Filt Rate > 60 mL/min (>60); Uric Acid 4.2 mg/dL (2.5-6.2)
[2022-08-22 17:36] VITALS: BP 136/92; PULSE 75; RESP 16
[2022-08-22 17:51] VITALS: BP 145/82
[2022-08-22 17:56] LABS: Platelet Morphology Comment NOTE
[2022-08-22 17:57] LABS: RBC Morphology Normal Morphology
--- NOTE | 2022-08-22 19:25 | P.PCNOB_ITS ---
Labor & Delivery Delivery date: 08/22/22 Intrapartal Events: None Cervical ripening method: none Induction method: none Delivery monitor: external FHT Route of delivery: Episiotomy description: None L&D Laceration Description: None Quantitative Blood Loss: 50 Anesthesia Type: Other (NO2) Narrative: Tiera labored rapidly without augmentation. An epidural was requested, but was not able to be administered prior to the onset of spontaneous pushing. NO2 was administered with minimal relief. SROM for copious clear fluid at onset of second stage and was presumed complete at that time. NSVB of a vigorous baby girl in CHUY position with mother on hands and knees in the bed. [place] was s ommersaulted through a single loose nuchal cord. Patient was assisted to supine position and was placed on her abdomen for drying and skin to skin. 30 units of pitocin in 500mL LR was started at 250mL/hr for AMTSL. After cessation of pulsation, the cord was double clamped by student nurse line construction supervisor and cut by FOB. Gentle cord traction and a single maternal push led to spontaneous, Schult ze delivery of an apparently intact placenta, membranes and 3VC. Fundus immediately firm and bleeding scant. Vagina and perineum inspected and intact. QBL 50mL. Both mother and baby stable and skin to skin as I left the room. [place] Baby 1: Infant gender: Female Presentation: vertex Position: Right Occiput Anterior Placenta delivery description: Spontaneous Cord Vessel Description: 3 Vessels, Nuchal Cord and Loose score (1 min): 9 score (5 min): 9 Plan for aftercare: Routine care
[2022-08-22] MEDS: ACETAMINOPHEN 325 MG TABLET 650 MG PO (19:39)
[2022-08-22] MEDS: DERMOPLAST SPRAY 20% 60 ML 1 SPRAY TOP (19:40)
[2022-08-22] MEDS: KETOROLAC 30 MG/ML VIAL IV (19:40)
[2022-08-22] MEDS: miSOPROStoL 200 MCG TABLET 400 MCG SL (22:22)
[2022-08-23] MEDS: IBUPROFEN 600 MG TABLET PO ×3 (01:56→14:18)
[2022-08-23] MEDS: ACETAMINOPHEN 325 MG TABLET 650 MG PO ×3 (01:56→14:18)
--- NOTE | 2022-08-23 13:27 | PM.OBDS.1 ---
Discharge Providers Provider Date of admission: 08/22/22 16:26 Discharge Date: 08/23/22 Primary care physician: Miscellaneous Consults: 08/23/22 19:20 Consult to Account Receivable Clerk Routine Comment: Discharge provider: Leticia Machado CNM Summary Hospital Course Date Patient Seen: 08/23/22 Time Patient Seen: 13:27 Diagnoses: O80 Hospital Course: PPD1: Stable s/p spontaneous labor resulting in NSVB of a baby girl. Patient is voiding, ambulating and independently. Tolerating a general diet. Pain is well controlled with PO medication. Vaginal bleeding increased and misoprostol 400mcg SL was given resulting in decreased and normal bleeding. Feeling ready for discharge to home today. is present and supportive. Peripartum Data Delivery Method: Natural Vaginal Laceration Description: None Episiotomy description: None Procedures: O80 complications: none [place] 1: Gender: Female Disposition of : home Discharge Diagnosis (1) Encounter for full-term uncomplicated delivery: Status: Acute Problem Details: routine course Status at Discharge Cognitive/behavioral status at discharge: oriented and calm Functional status at discharge: independent ambulation Overall status at discharge: patient is progressing back to baseline Time Spent with Patient Time attestation: Total time spent providing and/or coordinating discharge services: Objective Labs 08/22/22 17:00 08/22/22 17:00 Labs: Laboratory Results - last 24 hr 08/22/22 08/22/22 08/22/22 17:00 17:00 17:00 WBC 11.8 H RBC 4.62 Hgb 14.2 Hct 41.2 MCV 89.2 MCH 30.8 MCHC 34.5 RDW 13.5 Plt Count 154 Neut % (Auto) 67.2 Lymph % (Auto) 26.1 Turner % (Auto) 5.2 Eos % (Auto) 1.0 L Baso % (Auto) 0.5 Neut # (Auto) 7900 H Lymph # (Auto) 3100 Turner # (Auto) 600 Eos # (Auto) 100 Baso # (Auto) 100 Plt Morphology Comment Note RBC Morphology Normal morphology BUN 7 Creatinine 0.52 Estimated GFR > 60 BUN/Creatinine Ratio 13.5 Uric Acid 4.2 AST 27 Blood Type A Positive Antibody Screen Negative Exam Vital Signs (past 8 hours): BP 126/76, HR 70bpm, RR 16/min, T 97.8F Temporal Other: Fundus firm @ U-1, lochia light. Perineum intact with minimal edema. Discharge Plan Discharge Plan Patient Disposition: Home Discharge orders & Medications Prescriptions: New ibuprofen 600 mg Tablet 600 mg PO Q6HR PRN (Reason: Pain, Mild (1-3)) 14 Days Qty: 60 0RF Continued 1 tablet DIRECTED Follow up/Referrals: Leticia Machado CNM [Advanced Machine Filler Servicer] - (Follow-up with Tiburcio at 2wks and 6 weeks , as scheduled) Diet/Activity/Treatments Diet: Diet as Tolerated and Regular Activity: pelvic rest x 6 weeks Skin/Wound/Dressing Care Report to your healthcare provider any signs of infection, such as:: chills, fever, increased pain, unusual drainage and unusual redness Visit Report/Discharge Packet Instructions: Depression Stand Alone Forms: Patient Portal/API, Stroke Signs & Symptoms
[2022-08-23 14:23] VITALS: BP 125/62; PULSE 82; RESP 17; TEMP 36.4
== END 2022-08-23 14:50 | disposition home or self-care (01) | DRG 807 ==
PROVIDERS: Nurse Practitioner Obstetrics & Gynecology; Admitting Provider Advanced Practice Midwife; Referring Provider Advanced Practice Midwife; Visit Provider Advanced Practice Midwife
DX: O48.0 Post-term pregnancy (principal); Z37.0 Single live birth; Z3A.41 41 weeks gestation of pregnancy
CPT/HCPCS: 36415; 59050; 84450; 84550; 85025; 86850; 86900; 86901; G0379; J1885; S0191